=== PATIENT | male | born 1975 | race Two or more races ===

== ENCOUNTER 2019-02-19 11:57 | Inpatient (IN) | payer MEDICAID, OTHER ==
[2019-02-19] VITALS (11 sets, daily range): BP systolic 101–131; BP diastolic 27–66
[~2019-02-19] VITALS: Ht 175.3 cm; Wt 115.0 kg
[2019-02-19] MEDS ORDERED: MIDAZOLAM HCL 5 MG/ML-1ML VIAL ONE (12:01)
[2019-02-19] MEDS ORDERED: MIDAZOLAM DRIP 50 mg/50mL 50 ML IV ONE (12:01)
[2019-02-19] MEDS ORDERED: MIDAZOLAM HCL 5 MG/ML-1ML VIAL IV ONE (12:15)
[2019-02-19] MEDS: MIDAZOLAM DRIP 50 mg/50mL 50 ML IV SCH ×2 (12:30→19:29)
[2019-02-19] MEDS ORDERED: SODIUM CHLORIDE 0.9% 1,000 ML IV ONE ×2 (12:37→22:30)
[2019-02-19] MEDS ORDERED: SODIUM CHLORIDE 0.9% 500 ML IVB ONE (12:37)
[2019-02-19 13:11] LABS: Basophils # (auto) 0.1 uL; Basophils % (auto) 0.4 % (0.0-2.0); Eosinophils # (auto) 0 uL; Eosinophils % (auto) 0.2 % (0.0-7.0); Hematocrit 48.1 % (41.0-53.0); Mean Corpuscular Hemoglobin 31.9 pg (28.0-32.0); Mean Corpuscular Hgb Conc. 33.3 g/dL (32.0-36.0); Mean Corpuscular Volume 95.8 fL (80.0-100.0); Monocytes # (auto) 0.7 uL; Monocytes % (auto) 5.3 % (0.0-12.0); Neutrophils # (auto) 10.7 uL; Neutrophils % (auto) 79.1 % (37.0-80.0); Nucleated Red Blood Cells % 0.1 %; Platelet Count (auto) 262 10^3/uL (140-450); Red Blood Cells 5.02 10^6/uL (4.5-5.90); White Blood Cell 13.6 10^3/uL (4.4-10.8)
[2019-02-19 13:31] LABS: Albumin 3.6 g/dL (3.4-5.0); Calcium 7.8 mg/dL (8.5-10.1); Potassium 3.9 mmol/L (3.5-5.1)
[2019-02-19 13:34] LABS: BUN/Creatinine Ratio 12.5
[2019-02-19 13:37] LABS: Urine Bacteria MOD /hpf (None Seen); Urine Blood TRACE /uL (Negative); Urine Hyaline Cast MANY /lpf (0 - 2); Urine Mucus FEW (None Seen); Urine Specific Gravity 1.022 (1.001-1.035); Urine WBC 3 /hpf (0 - 3)
[2019-02-19 13:44] LABS: Bilirubin, Total 0.2 mg/dL (0.2-1.0); Total Protein 7.5 g/dL (6.4-8.2)
[2019-02-19] MEDS ORDERED: FUROSEMIDE 40 MG/4 ML VIAL IV ONE (13:45)
[2019-02-19] MEDS ORDERED: PANTOPRAZOLE 40 MG/10 ML VIAL INJ IV ONE (13:45)
[2019-02-19] MEDS ORDERED: cefTRIAXone 1GM/50ML D5W 50 ML IV ONE (13:45)
[2019-02-19 13:56] LABS: Barbiturate Scree,Urine NEGATIVE (NEGATIVE); Benzodiazephine Screen, Urine POSITIVE (NEGATIVE); Cannabinoid Screen, Urine NEGATIVE (NEGATIVE); Cocaine Screen, Urine NEGATIVE (NEGATIVE); Opiate Scree,Urine NEGATIVE (NEGATIVE); Phencyclidine Screen, Urine NEGATIVE (NEGATIVE)
[2019-02-19 14:03] LABS: Amphetamine Screen, Urine POSITIVE (NEGATIVE)
[2019-02-19 14:12] LABS: Magnesium 2.7 mg/dL (1.6-2.6)
[2019-02-19] MEDS ORDERED: FOLIC ACID 1 MG, MULTIPLE VITAMIN 10 ML, THIAMINE INJ 100 MG in SODIUM CHLORIDE 0.9% 1,... INJ ONE (16:30)
[2019-02-19] MEDS ORDERED: MORPHINE SULFATE 4 MG/ML SYR/VIAL IV PRN (18:00)
[2019-02-19] MEDS ORDERED: DEXTROSE (50%) 50ML SYRG IV PRN (18:00)
[2019-02-19] MEDS ORDERED: PROMETHAZINE HCL 25 MG/ML 1ML IV PRN (18:00)
[2019-02-19] MEDS ORDERED: NITROGLYCERIN 0.4 MG SL TAB SL PRN (18:00)
[2019-02-19] MEDS ORDERED: ALBUTEROL SULF 2.5 MG/0.5ML(0.5%) NEB SOLN NEB PRN (18:00)
[2019-02-19] MEDS ORDERED: LORazepam 2MG/ML-1ML VIAL IV PRN (18:00)
[2019-02-19] MEDS ORDERED: LABETALOL HCL 5 MG/ML ML 20ML VIAL IV PRN (18:00)
[2019-02-19] MEDS ORDERED: THIAMINE 100mg/ml INJ (200mg/2ml VIAL) IV ONE (18:00)
[2019-02-19] MEDS ORDERED: MORPHINE SULF INJ 2 MG/ML SYRINGE 1ML IV PRN ×2 (18:00)
[2019-02-19] MEDS: ALBUTEROL SULF 2.5 MG/0.5ML(0.5%) NEB SOLN NEB SCH ×2 (18:18→23:58)
[2019-02-19] MEDS: ACCU-CHEK COMFORT CURVE STRIP VI SCH (19:19)
[2019-02-19] MEDS ORDERED: ACETAMINOPHEN 650 mg PER 20 mL UD ONE (20:07)
[2019-02-19] MEDS ORDERED: ACETAMINOPHEN 650 mg PER 20 mL UD PO ONE (20:15)
[2019-02-19] MEDS: fentaNYL Drip 2500mCg/250mlNS 250 ML IV SCH (20:28)
[2019-02-19] MEDS ORDERED: fentaNYL Drip 2500mCg/250mlNS 250 ML IV ONE (20:28)
[2019-02-19] MEDS: PROPOFOL 100 ML IV SCH (20:37)
[2019-02-19] MEDS ORDERED: PROPOFOL 100 ML IV ONE (20:37)
[2019-02-19] MEDS ORDERED: NOREPINEPHRINE 8 MG/250ML KIT 250 ML IV SCH (22:19)
[2019-02-20] VITALS (96 sets, daily range): BP systolic 87–156; BP diastolic 36–104
[2019-02-20] MEDS: ACCU-CHEK COMFORT CURVE STRIP VI SCH ×2 (00:24→06:11)
[2019-02-20] MEDS: MIDAZOLAM DRIP 50 mg/50mL 50 ML IV SCH ×5 (06:20→23:34)
[2019-02-20] MEDS: ALBUTEROL SULF 2.5 MG/0.5ML(0.5%) NEB SOLN NEB SCH ×3 (06:26→18:59)
[2019-02-20] MEDS: PROPOFOL 100 ML IV SCH ×5 (07:32→23:40)
--- NOTE | 2019-02-20 08:20 | NUR ---
DR. SHAIKH AHMADI AWAITING CALLBACK
[2019-02-20 08:40] LABS: Basophils # (auto) 0.1 uL; Basophils % (auto) 0.7 % (0.0-2.0); Eosinophils # (auto) 0.1 uL; Eosinophils % (auto) 0.7 % (0.0-7.0); Hematocrit 43.8 % (41.0-53.0); Lymphocytes # (auto) 1.1 uL; Mean Corpuscular Hemoglobin 32.4 pg (28.0-32.0); Mean Corpuscular Hgb Conc. 34.1 g/dL (32.0-36.0); Mean Corpuscular Volume 94.8 fL (80.0-100.0); Monocytes # (auto) 0.4 uL; Monocytes % (auto) 5.1 % (0.0-12.0); Neutrophils # (auto) 6.8 uL; Neutrophils % (auto) 80.5 % (37.0-80.0); Nucleated Red Blood Cells % 0.1 %; Platelet Count (auto) 185 10^3/uL (140-450); Red Blood Cells 4.62 10^6/uL (4.5-5.90); Red Cell Distribution Width 14.2 % (11.8-14.3); White Blood Cell 8.5 10^3/uL (4.4-10.8)
[2019-02-20 08:56] LABS: BUN/Creatinine Ratio 15.9; Calcium 8.1 mg/dL (8.5-10.1); Potassium 4.1 mmol/L (3.5-5.1)
--- NOTE | 2019-02-20 09:02 | NUR ---
SEDATION VACATION HELD AT THIS TIME Addendum: 02/20/19 at 0902 by Vernon Salter RN Amended: Links added.
[2019-02-20] MEDS: ENOXAPARIN SOD 40 MG/0.4 ML SYRINGE SC SCH (09:36)
[2019-02-20] MEDS ORDERED: THIAMINE 100mg/ml INJ (200mg/2ml VIAL) IV SCH (10:00)
[2019-02-20] MEDS ORDERED: LEVOFLOXACIN 500MG 100 ML IV SCH (10:00)
--- NOTE | 2019-02-20 10:02 | NUR ---
TEMPERATURE 100.2 COOLING MEASURES APPLIED
--- NOTE | 2019-02-20 11:00 | NUR ---
HOSPITALIST PAGED AWAITING CALLBACK
--- NOTE | 2019-02-20 11:58 | NUR ---
WOUND CARE NOTE: Wound care in to see patient due to low Salbador score of 12 and intubation status putting patient to high risk for skin breakdown. Patient is 44 y/o male admitted for ALOC. Patient is resting in ICU bed in Rm. 111. He's intubated, sedated and mechanically ventilated. Patient appears to be in no pain using Nair Mayen Faces Pain Scale. Skin assessment done with the assistance of patient's nurse, CALI Junior. 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 No pressure injury noted. Patient is receiving BID/PRN cleaning and application of Barrier cream to sacral,buttocks, perineum as preventative. Repositioned patient for comfort facing his Lt. side, redistributed pressure points with pillows. Patient tolerated well. CALI Junior at bedside. RECOMMENDATION: Nursing to continue with BID/PRN cleaning and application of Barrier cream to sacral,buttocks per MD order as preventative, frequent turning and repositioning schedule as condition permits,redistribute pressure points with pillows, continue monitoring by wound care while patient is mechanically ventilated. Addendum: 02/20/19 at 1712 by Cesilia Quach RN Amended: Links added.
[2019-02-20] MEDS ORDERED: FOLIC ACID 1 MG, MULTIPLE VITAMIN 10 ML, MAGNESIUM SULF SDV 50% 8 MEQ, THIAMINE INJ 100... INJ SCH ×10 (12:00)
[2019-02-20] MEDS: PIPERACILLIN-TAZOB 3.375GM 100 ML IV SCH ×2 (12:00→17:56)
[2019-02-20] MEDS: fentaNYL Drip 2500mCg/250mlNS 250 ML IV SCH (12:07)
--- NOTE | 2019-02-20 13:16 | NUR ---
DR. PETERSON AT BEDSIDE
[2019-02-20] MEDS ORDERED: SODIUM CHLORIDE 0.9% 1,000 ML IV SCH (14:30)
[2019-02-20] MEDS ORDERED: PIPERACILLIN-TAZOB 3.375GM 100 ML IV ONE (14:30)
[2019-02-20] MEDS ORDERED: PANTOPRAZOLE 40 MG/10 ML VIAL INJ IV ONE (14:30)
[2019-02-20] MEDS ORDERED: FUROSEMIDE INJECTION 10 ML ONE (15:34)
[2019-02-20] MEDS ORDERED: NOREPINEPHRINE 8 MG/250ML KIT 250 ML IV ONE (15:34)
[2019-02-20] MEDS: NOREPINEPHRINE 8 MG/250ML KIT 250 ML IV SCH (15:34)
[2019-02-20] MEDS ORDERED: FUROSEMIDE 100 MG/10ML VIAL IV ONE (15:45)
[2019-02-20 17:08] LABS: Hepatitis B Surface Antigen Negative (Negative); Hepatitis C Antibody Negative (Negative)
[2019-02-20 17:09] LABS: Hepatitis A Ab IgM Negative; Hepatitis B Core IgM Negative
--- NOTE | 2019-02-20 19:00 | NUR ---
RECEIVED REPORT FROM HUGO RN, PT. IN BED ORALLY INTUBATED WITH ETT #8.0, 24 CM AT THE LIP. CONNECTED TO A MECHANICAL VENT @ ORDERED SETTINGS. OGT INTACT AND CLAMPED OFF. RT IJ TLC INTACT, PROPOFOL, VERSED AND FENTANYL DRIP INFUSING WELL, RT HAND IV SITE INTACT, CHAN IN AND DRAINING WELL.
[2019-02-21] VITALS (99 sets, daily range): BP systolic 91–124; BP diastolic 40–75
--- NOTE | 2019-02-21 | NUR ---
ORAL CARE DONE AND REPOSITIONED.
[2019-02-21] MEDS: PIPERACILLIN-TAZOB 3.375GM 100 ML IV SCH ×4 (00:20→18:08)
[2019-02-21] MEDS: ALBUTEROL SULF 2.5 MG/0.5ML(0.5%) NEB SOLN NEB SCH ×4 (00:34→18:24)
[2019-02-21] MEDS: PROPOFOL 100 ML IV SCH ×5 (02:33→13:05)
--- NOTE | 2019-02-21 04:00 | NUR ---
AM CARE DONE/ ORAL CARE DONE, SUCTIONED VIA ETT, REPOSITIONED.
[2019-02-21 04:29] LABS: Basophils # (auto) 0 uL; Basophils % (auto) 0.5 % (0.0-2.0); Eosinophils # (auto) 0.2 uL; Hematocrit 39.6 % (41.0-53.0); Hemoglobin 13.7 g/dL (13.5-17.5); Lymphocytes % (auto) 15.8 % (10.0-50.0); Mean Corpuscular Hemoglobin 32.4 pg (28.0-32.0); Mean Corpuscular Hgb Conc. 34.5 g/dL (32.0-36.0); Mean Corpuscular Volume 93.8 fL (80.0-100.0); Monocytes # (auto) 0.4 uL; Monocytes % (auto) 6.5 % (0.0-12.0); Neutrophils # (auto) 4.9 uL; Neutrophils % (auto) 74.2 % (37.0-80.0); Nucleated Red Blood Cells % 0.1 %; Platelet Count (auto) 174 10^3/uL (140-450); Red Blood Cells 4.22 10^6/uL (4.5-5.90); Red Cell Distribution Width 13.7 % (11.8-14.3); White Blood Cell 6.6 10^3/uL (4.4-10.8)
[2019-02-21 04:33] LABS: Anion Gap 6 (5-15); Blood Urea Nitrogen 12 mg/dL (7-18); Calcium 8.2 mg/dL (8.5-10.1); Carbon Dioxide 27 mmol/L (21-32); Chloride 108 mmol/L (98-107); Glucose 120 mg/dL (74-106); Magnesium 2.2 mg/dL (1.6-2.6); Potassium 3.3 mmol/L (3.5-5.1); Sodium 141 mmol/L (136-145)
[2019-02-21 04:36] LABS: BUN/Creatinine Ratio 12.2; Cholesterol 163 mg/dL (< 200); GFR African American 108 mL/min; GFR Non-African American 89 mL/min; HDL Cholesterol 25 mg/dL (40-59); Triglycerides 425 mg/dL (< 150)
--- NOTE | 2019-02-21 07:00 | NUR ---
REPORT GIVEN TO DAY RN.
--- NOTE | 2019-02-21 08:00 | NUR ---
LEVOPHED GTT Levophed GTT decreased to 2 mcg for a blood pressure of 121/68, will continue to titrate as tolerated by patient.
[2019-02-21] MEDS: MIDAZOLAM DRIP 50 mg/50mL 50 ML IV SCH (08:34)
--- NOTE | 2019-02-21 09:40 | NUR ---
BLOOD PRESSURE Blood pressure has not been taken secondary to RT forgot to placed blood pressure back on to patient from [id number]. Informed RT Joan and aware.
[2019-02-21] MEDS ORDERED: POTASSIUM EFFERVESENT TAB 25 MEQ GT ONE (10:30)
--- NOTE | 2019-02-21 10:30 | NUR ---
MD Dr. Segovia at bedside updated on patient condition and aware of POTASSIUM of 3.3 with new orders received, this RN to input into system.
--- NOTE | 2019-02-21 10:30 | NUR ---
LEVOPHED GTT Levophed GTT turned off for a blood pressure of 113/75, will continue to monitor patients blood pressure for blood pressure support.
[2019-02-21] MEDS: ENOXAPARIN SOD 40 MG/0.4 ML SYRINGE SC SCH (10:31)
[2019-02-21] MEDS: PANTOPRAZOLE 40 MG/10 ML VIAL INJ IV SCH (10:31)
--- NOTE | 2019-02-21 11:30 | NUR ---
FAMILY Patients brother and sister in law at bedside, updated on patient condition and questions/concerns answered.
--- NOTE | 2019-02-21 11:42 | NUR ---
Nutrition Assessment Notes please see attached link for complete assessment Est. Needs based on ABW (99 kg): [address] kcal (17-20 kcal/kgBW), 79-99gms pro (0.8-1.0 gms/kgBW). Will continue to monitor pertinent labs and reassess nutrient need prn Rec: EN support with Glucerna @ 30 ml./hr on current rate of propofol per MD approval Addendum: 02/21/19 at [address] Amended: Links added.
[2019-02-21] MEDS: fentaNYL Drip 2500mCg/250mlNS 250 ML IV SCH (13:05)
[2019-02-21] MEDS: FOLIC ACID 1 MG, MULTIPLE VITAMIN 10 ML, MAGNESIUM SULF SDV 50% 8 MEQ, THIAMINE INJ 100... INJ SCH ×5 (13:06)
--- NOTE | 2019-02-21 13:35 | NUR ---
FAMILY Patients brother and sister in law at bedside and answered brothers questions.
--- NOTE | 2019-02-21 14:15 | NUR ---
TEMPERATURE Patients temperature increased to 99.7 and cooling measures applied to patient.
--- NOTE | 2019-02-21 15:10 | NUR ---
MD Dr. Molina at bedside with new orders received, to input into system.
--- NOTE | 2019-02-21 15:33 | NUR ---
PT UNSTABLE FOR TRANSFER TO CT AT THIS TIME. PER YONATHAN LEIVA Addendum: 02/21/19 at 1701 by YONATHAN YOUNG RN [id number]: Charge nurse Wendy aware of CT of head. Will take once patient is stable for transport.
[2019-02-21] MEDS: NOREPINEPHRINE 8 MG/250ML KIT 250 ML IV SCH (15:34)
--- NOTE | 2019-02-21 16:30 | NUR ---
FAMILY Patients family at bedside.
--- NOTE | 2019-02-21 19:30 | NUR ---
REPORT RECEIVED AND ASSUMED CARE; SEE INTERVENTIONS FOR ASSESSMENT; VS STABLE AT THIS TIME; SEE IV SPREADSHEET FOR GTTS; WILL CONT. TO MONITOR.
--- NOTE | 2019-02-21 20:30 | NUR ---
COUSIN AT BEDSIDE VISITING.
--- NOTE | 2019-02-21 22:20 | NUR ---
NOTICED COUSIN LEFT BEDSIDE.
[2019-02-22] VITALS (78 sets, daily range): BP systolic 92–127; BP diastolic 47–77
[2019-02-22] MEDS: ALBUTEROL SULF 2.5 MG/0.5ML(0.5%) NEB SOLN NEB SCH ×4 (00:21→18:15)
[2019-02-22] MEDS: PIPERACILLIN-TAZOB 3.375GM 100 ML IV SCH ×4 (00:57→18:00)
[2019-02-22 04:25] LABS: BUN/Creatinine Ratio 10.5; Calcium 8.3 mg/dL (8.5-10.1); Potassium 3.4 mmol/L (3.5-5.1)
--- NOTE | 2019-02-22 04:48 | NUR ---
PROVIDED BED BATH WITH CHG WIPES AND LINEN CHANGE; PT. TOLERATED WELL; WILL CONT. TO MONITOR.
--- NOTE | 2019-02-22 09:51 | NUR ---
FAMILY AT BEDSIDE PATIENT'S SPOUSE AND FATHER AT BEDSIDE, UPDATED ON PATIENT'S STATUS IN [facility], ALL VERBALIZED UNDERSTANDING. WILL CONTINUE TO MONITOR.
[2019-02-22] MEDS ORDERED: POTASSIUM EFFERVESENT TAB 25 MEQ PO ONE (10:45)
--- NOTE | 2019-02-22 10:50 | NUR ---
HOSPITALIST AT BEDSIDE DR PETERSON UPDATED ON PATIENT'S STATUS AND LABS. DR PETERSON DISCUSSED PLAN OF CARE WITH PATIENT'S SPOUSE AND PATIENT'S FATHER AT BEDSIDE, ALL QUESTIONS AND CONCERNS ANSWERED. WILL CONTINUE TO MONITOR.
[2019-02-22] MEDS: PANTOPRAZOLE 40 MG/10 ML VIAL INJ IV SCH (10:52)
[2019-02-22] MEDS: THIAMINE 100mg/ml INJ (200mg/2ml VIAL) IV SCH (10:53)
[2019-02-22] MEDS: ENOXAPARIN SOD 40 MG/0.4 ML SYRINGE SC SCH (10:53)
--- NOTE | 2019-02-22 11:20 | NUR ---
INTEGRATIVE MEDICINE PHYSICIAN AT BEDSIDE NOTIFIED OF ORDERED GLUCERNA AND PATIENT NOT DIABETIC - HISTORY OF NO DIABETES CONFIRMED WITH DR PETERSON. PER DR PETERSON FAMILY STATED BORDERLINE DIABETES BUT DOES NOT HAVE A HISTORY OF DIABETES. DIET WILL BE CHANGED TO JEVITY WITH A GOAL RATE OF 30/MLS/HR.
[2019-02-22] MEDS: MIDAZOLAM DRIP 50 mg/50mL 50 ML IV SCH (12:16)
[2019-02-22] MEDS: PROPOFOL 100 ML IV SCH (12:25)
--- NOTE | 2019-02-22 12:40 | NUR ---
Nutrition Assessment Notes Pt wt is 127 kg today Est. Needs based on ABW (99 kg): [address] kcal (17-20 kcal/kgBW), 79-99gms pro (0.8-1.0 gms/kgBW). Will continue to monitor pertinent labs and reassess nutrient need prn LABS: TRIGLYC 425 H, HDL 25 L, CA 8.3 L, POT 3.4 L, A1c WNL BS: 12 high risk, intact BM: last BM 02/21 per RN doc PES: 1) Altered nutrition related lab values r.t current chronic medical condition aeb hyperglycemia, hypocalcemia, elev TG 2) Decreased nutrient needs r.t adiposity aeb pt`s high BMI 41.1 kgm2 3) Impaired swallowing r.t current medical conidtion aeb pt`s intubated sedtaed with order of NPO Rec: EN support with Jevity 1.2 @ 30 ml./hr on current rate of propofol per MD approval (Note recommendation amended d/t pt A1c is WNL)
[2019-02-22] MEDS: FOLIC ACID 1 MG, MULTIPLE VITAMIN 10 ML, MAGNESIUM SULF SDV 50% 8 MEQ, THIAMINE INJ 100... INJ SCH ×5 (12:46)
[2019-02-22] MEDS: BUMETANIDE 2.5mg/10ml (0.25 mg/ml) INJ IV SCH (14:59)
[2019-02-22] MEDS: NOREPINEPHRINE 8 MG/250ML KIT 250 ML IV SCH (15:34)
--- NOTE | 2019-02-22 17:00 | NUR ---
DR FOX AT BEDSIDE UPDATED ON PT STATUS AND CURRENT SEDATION STATUS WITH PRIMARY NURSE. NEW ORDERS RECEIVED AND IMPLEMENTED. DISCUSSED POC WITH PTS BROTHER DONALD AT BEDSIDE, DONALD VERBALIZED UNDERSTANDING. Signed: 02/22/19 at 1842 by LAURA QUEVEDO SN <Co-Signature Required> Co-Signed: 02/22/19 at 1842 by Ashlee Sosa RN
--- NOTE | 2019-02-22 17:30 | NUR ---
CT MACHINE DOWN UNABLE TO TAKE PT TO CT AT THIS TIME. PER RADIOLOGY DEPARTMENT, CT MACHINE DOWN AT THIS TIME AND SHOULD BE WORKING LATER TONIGHT. Signed: 02/22/19 at 1846 by LAURA QUEVEDO <Co-Signature Required> Co-Signed: 02/22/19 at 1846 by Ashlee Sosa RN
--- NOTE | 2019-02-22 18:15 | NUR ---
Respiratory note: RECEIVED PT ON VENT V19, VENT CONNECTED TO RED OUTLET AND O2 SOURCE, ALARMS ARE SET AND AUDIBLE AMBU BAG AND MASK AT BEDSIDE. BS ARE FINE COURSE, SXD SCANT CLEAR. FAMILY AT BEDSIDE. MED NEB TX GIVEN INLINE WITHOUT ADVERSE REACTION NOTED. RT NAME AND PAGER ASSIGNMENT WRITTEN ON PTS ROOM BOARD. WILL CONTINUE TO MONITOR.
--- NOTE | 2019-02-22 20:07 | NUR ---
Respiratory note: RECEIVED PT ON VENT V19, VENT CONNECTED TO RED OUTLET AND O2 SOURCE, ALARMS ARE SET AND AUDIBLE AMBU BAG AND MASK AT BEDSIDE. BS ARE FINE COURSE, SXD SCANT CLEAR. FAMILY AT BEDSIDE. MED NEB TX GIVEN INLINE WITHOUT ADVERSE REACTION NOTED. RT NAME AND PAGER ASSIGNMENT WRITTEN ON PTS ROOM BOARD. WILL CONTINUE TO MONITOR. Addendum: 02/22/19 at 2040 by Elke Stack, RT ROUTINE VENT CHECK DONE AT THIS TIME, NO VENT CHANGES MADE AT THIS TIME.
--- NOTE | 2019-02-22 21:00 | NUR ---
TITRATING SEDATION TO PT. COMFORT AT MINIMAL SEDATION; VERSED GTT OFF SINCE AM SHIFT PER REPORT; CONT. WITH FENTANYL GTT AND PROPOFOL GTT; WILL CONT. TO MONITOR.
--- NOTE | 2019-02-22 21:28 | NUR ---
Patient has returned from radiology. Patient returned to bed and is now on 2 l/min NC with suction available at bedside. Addendum: 02/26/19 at 0244 by ALBINA SMITH RN Wrong time. Disregard.
--- NOTE | 2019-02-22 22:06 | NUR ---
Respiratory note: ROUTINE VENT CHECK. NO VENT CHANGES MADE AT THIS TIME.
[2019-02-23] VITALS (82 sets, daily range): BP systolic 90–177; BP diastolic 45–98
[2019-02-23] MEDS: ALBUTEROL SULF 2.5 MG/0.5ML(0.5%) NEB SOLN NEB SCH ×5 (00:16→23:53)
--- NOTE | 2019-02-23 00:16 | NUR ---
Respiratory note: ROUTINE VENT CHECK. NO VENT CHANGES MADE AT THIS TIME. MED NEB TX GIVEN INLINE WITHOUT ADVERSE REACTION NOTED. BS ARE COURSE SXD SCANT GILL.
--- NOTE | 2019-02-23 02:06 | NUR ---
Respiratory note: AT BEDSIDE FOR ROUTINE VENT CHECK. HME AND SX CATHETER CHANGED AT THIS TIME. CURRENT TEMP IS 99.3F. NO VENT CHANGES MADE AT THIS TIME. WILL CONTINUE TO MONITOR.
--- NOTE | 2019-02-23 04:20 | NUR ---
Respiratory note: END OF SHIFT VENT CHECK. NO VENT CHANGES MADE. CURRENT TEMP IS 99.3F. WILL HAVE DAY SHIFT CONTINUE TO MONITOR.
[2019-02-23 05:35] LABS: BUN/Creatinine Ratio 11.6; Calcium 8.4 mg/dL (8.5-10.1); Potassium 3.8 mmol/L (3.5-5.1)
[2019-02-23] MEDS: PIPERACILLIN-TAZOB 3.375GM 100 ML IV SCH ×4 (06:00→17:42)
--- NOTE | 2019-02-23 07:04 | NUR ---
Respiratory note: RECEIVED PATIENT ON V19 ESPRIT VENT ORALLY INTUBATED WITH AN 8.0 ETT SECURED VIA ROSARIO AT THE 23CM MARKING AT THE LIP, AND MECHANICALLY VENTILATED WITH THE CHARTED SETTINGS. SPO2 95%, LUNG SOUNDS DIM T/O, NO SECRETIONS WHEN SUCTIONED. SKIN IS WARM/DRY TO THE TOUCH AND IS INTACT NEAR ROSARIO SITE. THERE IS AN OGT IN PLACE AND SECURED TO THE ETT, AND A TRIPLE LUMEN CENTRAL LINE IS PLACED IN THE RIGHT IJ. NO EDEMA NOTED IN UPPER EXTREMITIES. LOWER EXTREMITIES ARE PRESENTING WITH +1 PITTING EDEMA. NO NEW AM CXR TO ASSESS AT THIS TIME. PATIENT IS UNRESPONSIVE TO BOTH VERBAL/TACTILE STIMULI AND IS SEDATED ON PROPOFOL AND FENTANYL DRIPS. HE IS RESTING COMFORTABLY AND TOLERATING VENT WELL, NO CHANGES MADE. VENT PLUGGED INTO RED OUTLET AND ALL ALARMS ARE SET AND AUDIBLE. WILL CONTINUE TO ASSESS PATIENT WELL VENTILATOR FUNCTION. MED-NEB RUN INLINE, ABG DRAWN.
--- NOTE | 2019-02-23 07:40 | NUR ---
OPENING SHIFT NOTE REPORT RECEIVED FROM BATCHING OPERATOR RN, MORNING ASSESSMENT PERFORMED AND DOCUMENTED. 44 YEAR OLD MALE, MECHANICALLY VENTILATED AND SEDATED. HOB ELEVATED GREATER THAN 30 DEGREES, ETT SECURED WITH ROSARIO, POSITIVE COUGH AND GAG REFLEX NOTED, OGT PLACEMENT VERIFIED VIA AUSCULTATION WITH AIR BOLUS AND ASSISTED BY FLOR Shabazz STUDENT PEARL GLUE DRIER RN. PERIPHERAL IV'S PATENT AND SALINE LOCKED, RIGHT IJ PATENT AND INFUSING ANTIBIOTICS ORDERED BY MD - SEDATION STOPPED FOR SEDATION VACATION AND MONITORING NEUROLOGICAL STATUS. ABDOMEN SOFT, CHAN CATHETER PATENT AND DRAINING TO GRAVITY YELLOW/GREENISH URINE WITH SEDIMENT. MITTENS PLACED FOR PATIENT SAFETY DURING SEDATION VACATION. COMFORT MEASURES PROVIDED, FALL AND SAFETY PRECAUTIONS IN PLACE. CLOSE MONITORING DURING SHIFT.
--- NOTE | 2019-02-23 08:30 | NUR ---
FAMILY AT BEDSIDE PATIENT OFF SEDATION, WAKING UP - NO FOLLOWING COMMANDS AT THIS TIME, FALL AND SAFETY PRECAUTIONS IN PLACE. WILL CONTINUE TO MONITOR DURING SHIFT.
--- NOTE | 2019-02-23 10:30 | NUR ---
RESTART SEDATION PATIENT PLACED ON SEDATION VACATION AT START OF SHIFT, AT THIS TIME PATIENT SLIGHTLY OPENS EYES AND MOVING UPPER AND LOWER EXTREMITIES WITHOUT PURPOSE. PATIENT NOT FOLLOWING COMMANDS, INCREASED HR, RESPIRATIONS, DECREASED OXYGEN SATURATION TO 85%, INCREASED ORAL AND ETT SECRETIONS. PATIENT'S GIRL FRIEND LEANN AT BEDSIDE, ATTEMPTING TO KEEP PATIENT CALM WITH NO SUCCESS. PATIENT WILL BE RE-SEDATED AND MD'S WILL BE NOTIFIED.
[2019-02-23] MEDS: PANTOPRAZOLE 40 MG/10 ML VIAL INJ IV SCH (10:52)
[2019-02-23] MEDS: ENOXAPARIN SOD 40 MG/0.4 ML SYRINGE SC SCH (10:52)
[2019-02-23] MEDS: BUMETANIDE 2.5mg/10ml (0.25 mg/ml) INJ IV SCH (10:52)
[2019-02-23] MEDS: THIAMINE 100mg/ml INJ (200mg/2ml VIAL) IV SCH (10:52)
--- NOTE | 2019-02-23 12:00 | NUR ---
PATIENT OFF/RETURN TO FLOOR FROM RADIOLOGY FOR ORDERED HEAD CT VIA GURNEY, CONNECTED TO PORTABLE MONITOR AND VENTILATOR. PATIENT ACCOMPANIED BY THIS NURSE, Nina WILLIAMSON, PERINATAL EDUCATOR AND FLOR DREDGE OPERATOR STUDENT RN. 1220: PATIENT RETURNED TO FLOOR, CONNECTED TO BEDSIDE MONITOR - SEDATION INCREASED DUE TO INCREASED AGITATION AND SAFETY PURPOSE WHILE TRANSPORT AND HEAD CT.
--- NOTE | 2019-02-23 12:05 | NUR ---
RT Transport Note: Patient transported to CT with CALI LAYNE. Patient transported to and from procedure on ventilator with previous ordered settings. Patient on telehealth nurse educator with alarms set and audible, ambu-bag/mask connected to 02 tank. Patient returned to room with no adverse reaction noted. Transport completed without incident.
[2019-02-23] MEDS: MIDAZOLAM DRIP 50 mg/50mL 50 ML IV SCH (12:16)
--- NOTE | 2019-02-23 13:00 | NUR ---
COMFORT/CHAN BAG CHANGED DURING TRANSFER TO RADIOLOGY, CHAN CATHETER GOT CAUGHT BETWEEN DOOR AND BED CAUSING URINE TO LEAK APPROXIMATELY 900 MLS OF YELLOW/GREENISH URINE IN BED. CHAN CATHETER BAG CHANGED VIA STERILE TECHNIQUE BY FLOR ALGOLOGY TEACHER STUDENT RN, ASSISTED BY THIS NURSE. COMPLETE BEDDING CHANGED AND GOWN AFTER SKIN CARE PROVIDED TO MAINTAIN SKIN INTEGRITY, PATIENT CONTINUES TO BE RESTLESS AT THIS TIME. PATIENT REPOSITIONED FOR COMFORT - FALL AND SAFETY PRECAUTIONS IN PLACE. WILL CONTINUE TO MONITOR.
[2019-02-23] MEDS: PROPOFOL 100 ML IV SCH ×2 (13:36→19:00)
--- NOTE | 2019-02-23 14:05 | NUR ---
DR FOX AT BEDSIDE UPDATED ON PATIENT'S STATUS AND SEDATION VACATION AGITATION AND RESTLESSNESS. DR FOX VERBALIZED UNDERSTANDING. DR FOX DISCUSSED PLAN OF CARE WITH PATIENT'S BROTHER DONALD AT BEDSIDE. ORDERS FOR PRECEDEX RECEIVED FOR CPAP ATTEMPT TOMORROW MORNING AND TO START ENTERAL FEEDING.
[2019-02-23] MEDS: NOREPINEPHRINE 8 MG/250ML KIT 250 ML IV SCH (15:34)
[2019-02-23] MEDS ORDERED: Jevity 1.2 Cal/Fiber 1 Liter GT SCH (16:30)
--- NOTE | 2019-02-23 16:45 | NUR ---
FEEDING STARTED/CENTRAL LINE DRESSING CHANGED 1644: FEEDING STARTED PER DR FOX'S ORDER AT A SLOW RATE. 1699: CENTRAL LINE TO RIGHT IJ DRESSING CHANGED VIA STERILE TECHNIQUE, ASSISTED BY CALI LAYNE. NOTED INTACT BLISTER ON ANTERIOR RIGHT NECK UNDERNEATH OLD DRESSING. WOUND CARE PICTURES TAKEN, AREA CLEANSED FOR STERILITY AND COVERED WITH GAUZE AND CENTRAL LINE DRESSING ON TOP. WOUND CARE CONSULT WILL BE ORDERED Signed: 02/23/19 at 1723 by LAURA QUEVEDO <Co-Signature Required> Co-Signed: 02/23/19 at 1723 by Ashlee Sosa RN
[2019-02-23] MEDS: DexMEDEtomidine 400 MCG in D5W 5% 96 ML IV SCH (17:52)
--- NOTE | 2019-02-23 18:20 | NUR ---
FAMILY AT BEDSIDE/INCREASE SEDATION PATIENT'S GIRLFRIEND AND BROTHER DONALD AT BEDSIDE, PATIENT NOTED TO BE AGITATED MOVING UPPER AND LOWER EXTREMITIES WHEN FAMILY PRESENT. FAMILY NOTIFIED OF NEED TO INCREASE SEDATION, FAMILY VERBALIZED UNDERSTANDING.
--- NOTE | 2019-02-23 19:01 | NUR ---
END OF SHIFT NOTE PATIENT MECHANICALLY VENTILATED, SEDATED - RELAXED AND CALM AT THIS TIME BUT RESTLESS WHEN TOUCHED OR PERFORMING ADL'S, NO DISTRESS NOTED, RESPIRATIONS EVEN AND UNLABORED, VSS AND DOCYMENTED. FAMILY LEFT BEDSIDE FOR SHIFT CHANGE. ICE PACKS AND COOL TOWEL ON FOREHEAD IN PLACE FOR COOLING MEASURES. FALL AND SAFETY PRECAUTIONS IN PLACE, ENDORSED CONTINUED CARE TO TRAVEL OCCUPATIONAL THERAPIST RN.
--- NOTE | 2019-02-23 19:25 | NUR ---
OPENING SHIFT RECEIVED REPORT FROM DAY SHIFT RN. ASSUMED CARE OF PATIENT. PATIENT IN BED VENTED AND SEDATED WITH NO SIGNS OR SYMPTOMS OF SOB, PAIN OR DISTRESS. ET 8.0 24 AT THE LIP - AC 24/TV500/PEEP 7/ FI02 30%. RIGHT INTRAJUGULAR, LEFT ANTECUBITAL AND RIGHT HAND IV - CLEAN/DRY/INTACT. OGT VERIFIED VIA AUSCULTATION WITH 10 CC OF AIR, CURRENTLY ON 10CC JEVITY - MINIMAL RESIDUAL, PATIENT TOLERATING. CHAN HUNG TO GRAVITY. REPOSITIONED FOR COMFORT. BED IN LOWEST POSITION, SIDE RAILS UPX2. WILL CONTINUE TO MONITOR.
[2019-02-24] VITALS (89 sets, daily range): BP systolic 90–176; BP diastolic 39–113
[2019-02-24] MEDS: PIPERACILLIN-TAZOB 3.375GM 100 ML IV SCH ×5 (00:30→23:41)
--- NOTE | 2019-02-24 00:45 | NUR ---
MORNING CARE PERFORMED MORNING CARE WITH CHG WIPES AND WASH CLOTHS TO THE FACE. PARTIAL LINEN CHANGE AND GOWN CHANGED. REPOSITIONED FOR COMFORT. SKIN REASSESSED AT THIS TIME. ORAL AND CHAN CARE PERFORMED. BED IN LOWEST POSITION, SIDE RAILS UP X2. WILL CONTINUE TO MONITOR.
[2019-02-24 03:58] LABS: Calcium 8.5 mg/dL (8.5-10.1); Potassium 3.6 mmol/L (3.5-5.1)
[2019-02-24 04:00] LABS: BUN/Creatinine Ratio 16.7
[2019-02-24] MEDS: fentaNYL Drip 2500mCg/250mlNS 250 ML IV SCH ×2 (04:00→04:51)
[2019-02-24] MEDS: ALBUTEROL SULF 2.5 MG/0.5ML(0.5%) NEB SOLN NEB SCH ×3 (05:43→19:14)
--- NOTE | 2019-02-24 07:20 | NUR ---
OPENING NOTE SHIFT REPORT RECEIVED AND ASSUMED CARE OF PT FROM LEONID RN
--- NOTE | 2019-02-24 07:20 | NUR ---
CLOSING NOTE SHIFT REPORT RRECEIVED AND ASSUMED CARE OF PT FROM BILLYPRINCE RN
--- NOTE | 2019-02-24 07:30 | NUR ---
END OF SHIFT REPORT GIVEN TO DAY SHIFT RN. CARE ENDORSED.
--- NOTE | 2019-02-24 09:00 | NUR ---
PT IS AWAKE, NOT ALERT, BUT MOVING EXTREMITIES. MITTENS APPLIED.
[2019-02-24] MEDS: PROPOFOL 100 ML IV SCH (09:35)
[2019-02-24] MEDS: DexMEDEtomidine 400 MCG in D5W 5% 96 ML IV SCH ×2 (09:36→23:42)
[2019-02-24] MEDS: BUMETANIDE 2.5mg/10ml (0.25 mg/ml) INJ IV SCH (09:56)
[2019-02-24] MEDS: PANTOPRAZOLE 40 MG/10 ML VIAL INJ IV SCH (09:57)
[2019-02-24] MEDS: ENOXAPARIN SOD 40 MG/0.4 ML SYRINGE SC SCH (09:57)
[2019-02-24] MEDS: THIAMINE 100mg/ml INJ (200mg/2ml VIAL) IV SCH (10:01)
--- NOTE | 2019-02-24 11:00 | NUR ---
DR. PETERSON AT BEDSIDE ORDERS RECEIVED
[2019-02-24] MEDS: NOREPINEPHRINE 8 MG/250ML KIT 250 ML IV SCH (15:34)
[2019-02-24] MEDS ORDERED: ONDANSETRON HCL 4 MG/2 ML VIAL IV PRN (16:00)
[2019-02-24] MEDS ORDERED: ONDANSETRON HCL 4 MG/2 ML VIAL ONE (16:10)
--- NOTE | 2019-02-24 16:30 | NUR ---
DR. LUBIN AT BEDSIDE ORDERS RECEIVED
--- NOTE | 2019-02-24 17:40 | NUR ---
PT EXTUBATED. TOLERATING WELL. WILL CONTINUE TO MONITOR
--- NOTE | 2019-02-24 17:40 | NUR ---
Respiratory note: PT EXTUBATED AT THIS TIME PER DR. LUBINR SENIOR FUNCTIONAL ANALYST. PT TOLERATING BEING OFF VENTILATOR AND IS CURRENTLY ON COOL AEROSOL @ 30%, 8LPM. NO STRIDOR NOTED. SPO2 95%, HR 100, RR 16. BS CLR/DIM. MILD SECRETIONS NOTED. PT IS FULLY AWAKE AND ALERT. WILL CONTINUE TO MONITOR PT T/O SHIFT.
--- NOTE | 2019-02-24 19:20 | NUR ---
SHIFT REPORT GIVEN AND CARE ENDORSED TO ABDIEL LEIVA
--- NOTE | 2019-02-24 19:44 | NUR ---
Respiratory note: PT SWITCHED FROM COOL AEROSOL TO NC3L AND TOLERATING WELL. SPO2 97%, HR 99, RR 19. WILL CONTINUE TO MONITOR PT T/O SHIFT.
--- NOTE | 2019-02-24 20:00 | NUR ---
OPEN NOTES PATIENT AWAKE AND ORIENTED. HE SAID HE HAD TOO MUCH TO DRINK THAT'S WHY HE IS IN THE HOSPITAL. ABLE TO MOVE ALL LIMBS, ABLE TO TURN TO HIS SIDES. NO COMPLAINS OF PAIN, NOT IN DISTRESS. EXTUBATED TODAY,ON NASAL CANNULA NOW AT 3L/MIN. USES SUCTION FOR ORAL SECRETIONS. FULL ASSESSMENT DONE -REFER INTERVENTIONS. CENTRAL LINE DRESSING PEELING OFF, CHANGED ASEPTICALLY.
--- NOTE | 2019-02-24 20:10 | NUR ---
ELIMINATION PATIENT HAD SOFT TO LOOSE BROWNISH STOOL MODERATE AMOUNT CLEANED, PARTIAL LINEN CHANGED DONE
[2019-02-25] VITALS (14 sets, daily range): BP systolic 130–169; BP diastolic 79–99
[2019-02-25] MEDS: ALBUTEROL SULF 2.5 MG/0.5ML(0.5%) NEB SOLN NEB SCH ×4 (00:39→18:50)
--- NOTE | 2019-02-25 01:44 | NUR ---
BP HIGH PATIENT'S BP RANGING 160-170/ 90-100 [facility] PAGED HOSPITALIST
--- NOTE | 2019-02-25 03:00 | NUR ---
Re-asses BP Patient's BP now 150-155 mmHg systolic. Hospitalist hasn't called back. will monitor
[2019-02-25 04:06] LABS: Hematocrit 43.3 % (41.0-53.0); Hemoglobin 14.7 g/dL (13.5-17.5); Mean Corpuscular Hemoglobin 31.4 pg (28.0-32.0); Mean Corpuscular Hgb Conc. 33.9 g/dL (32.0-36.0); Mean Corpuscular Volume 92.7 fL (80.0-100.0); Platelet Count (auto) 289 10^3/uL (140-450); Red Blood Cells 4.67 10^6/uL (4.5-5.90); Red Cell Distribution Width 13.2 % (11.8-14.3); White Blood Cell 6.7 10^3/uL (4.4-10.8)
[2019-02-25 04:14] LABS: Basophils % (manual) 0 (0.0-2.0); Blast Cells 0; Eosinophils % (manual) 0 (0-7); Metamyelocytes % 0; Promyelocytes % 0; Reactive Lymphocytes 0
[2019-02-25 04:23] LABS: Magnesium 2.2 mg/dL (1.6-2.6)
--- NOTE | 2019-02-25 04:30 | NUR ---
ELIMINATION/HYGIENE PATIENT HAD SOFT TO LOOSE BROWNISH STOOL MODERATE AMOUNT CLEANED, SPONGE BATH DONE.PARTIAL LINEN CHANGED DONE
[2019-02-25 04:39] LABS: Band Neutrophils % (manual) 1; Lymphocytes % (manual) 17 (10.0-50.0); Monocytes % (manual) 5 (0-12); Myelocytes % 2
--- NOTE | 2019-02-25 05:00 | NUR ---
ICE CHIPS PATIENT GIVEN ICE CHIPS. TOLERATED WELL
[2019-02-25] MEDS: PIPERACILLIN-TAZOB 3.375GM 100 ML IV SCH (05:50)
[2019-02-25] MEDS: PANTOPRAZOLE 40 MG/10 ML VIAL INJ IV SCH ×2 (10:13→21:18)
[2019-02-25] MEDS: BUMETANIDE 2.5mg/10ml (0.25 mg/ml) INJ IV SCH (10:19)
[2019-02-25] MEDS: ENOXAPARIN SOD 40 MG/0.4 ML SYRINGE SC SCH (10:19)
[2019-02-25] MEDS: LEVOFLOXACIN 750MG 150 ML IV SCH (10:19)
[2019-02-25] MEDS: THIAMINE 100mg/ml INJ (200mg/2ml VIAL) IV SCH (10:20)
--- NOTE | 2019-02-25 11:32 | NUR ---
Nutrition Follow-up Notes Wt.: 115.0 kg today Pt's successfully extubated yesterday, on oxygen via nasal cannula, asleep, no immediate family member at bedside during rounds this morning. Pt's no signs of distress noted earlier, currently on Clear Liquid diet with good PO intake aeb 100% consumed meal on today's breakfast. Noted pt's for active Wound consult. Est. Needs based on AdBW (99 kg): 9927-5365 kcal (17-20 kcal/kgAdBW), 79-99gms pro (0.8-1.0 gms/kgAdBW). Will continue to monitor pertinent labs and reassess nutrient need prn Labs: No new labs today 02/24/18 pertinent lab wnl except Cl 110 H Skin: Salbador scale 17, mod risk, skin intact per computer drafter. GI: Pt had 2x BM this morning per computer drafter. PES: Increased nutrient needs r/t acute/chronic medical condition aeb s/p extubation, on Clear Liquid diet. Altered nutrition related lab values r/t current/chronic medical condition aeb hyperchloremia. Obesity r/t food intake more than body requirement aeb 158% IBW, BMI 37.4 kg/m2 and increased body adiposity Will continue to monitor PO intake, skin status, pertinent labs and weight trend. F/u in 2 to 3 days. Rec.: 1.) Advance gradually oral diet when medically appropriate. 2.) Continue close supervision during meals. 3.) Refer pt to RD for further nutrition education and weight monitoring upon discharge. 4.) Continue current plan of care.
[2019-02-25] MEDS ORDERED: hydrALAZINE HCL 20 MG/ML VL IV PRN (15:30)
--- NOTE | 2019-02-25 15:30 | NUR ---
DR. PETERSON IN TO SEE PT UPDATED ON PT'S CONDITION 4 LOOSE STOOL WITH SOME STREAKS OF BLOOD, PT ALSO HAVING SOME BLOOD IN CHAN, I HAVE BEEN DOING BLADDER TRAINING AND PT REQUIRES PT DUE TO DIFFICULTY TRANSFERRING FROM BED TO CHAIR. NEW ORDERS RECEIVED FOR INCREASED PROTONIX CT SCAN OF ABDOMEN AND GI CONSULTATION WITH DR. MARIE.
[2019-02-25] MEDS ORDERED: LORazepam 0.5 MG TAB PO PRN (15:45)
--- NOTE | 2019-02-25 16:44 | NUR ---
Telemetry admit from ICU JOI VILLATORO admitted to Telemetry unit after SBAR received. Patient oriented to Yadira Cameron RN primary RN, unit, room, bed, and unit policies regarding patient care and visiting hours. Patient now on continuous telemetry monitoring, tele box #14. Patient's bed is in set in lowest locked position with call light within reach. All questions and concerns addressed, patient verbalized understanding. Will continue to monitor.
[2019-02-25] MEDS: IPRATROPIUM BROM 0.5 MG/2.5ML INH SOL NEB SCH (18:50)
--- NOTE | 2019-02-25 19:28 | NUR ---
Opening Shift Note Assumed care of patient, awake and alert x 4. No S/S of distress/SOB. Bed is in lowest position and locked. Call light within reach. Board updated. Tele box number matches monitor and leads are in correct placement. Instructed on POC and to call for assist PRN, will continue to monitor for changes Q1hr and PRN.
--- NOTE | 2019-02-25 21:18 | NUR ---
Patient taken down to radiology accompanied by RN. Patient attached to 2 l/min NC. Taken in wheelchair.
--- NOTE | 2019-02-25 21:28 | NUR ---
Patient has returned from radiology. Patient returned to bed and is now on 2 l/min NC with suction available at bedside.
[2019-02-26] MEDS: ALBUTEROL SULF 2.5 MG/0.5ML(0.5%) NEB SOLN NEB SCH ×3 (00:26→11:00)
[2019-02-26] MEDS: IPRATROPIUM BROM 0.5 MG/2.5ML INH SOL NEB SCH ×3 (00:26→11:01)
[2019-02-26 05:04] VITALS: BP 143/86
[2019-02-26 06:44] LABS: Potassium 3.9 mmol/L (3.5-5.1)
[2019-02-26 06:49] LABS: BUN/Creatinine Ratio 18.1; Calcium 9.6 mg/dL (8.5-10.1)
[2019-02-26 09:00] VITALS: BP 148/103
[2019-02-26 09:45] VITALS: BP 146/91
[2019-02-26] MEDS ORDERED: LISINOPRIL 20 MG TAB PO ONE (10:00)
[2019-02-26] MEDS ORDERED: LISINOPRIL 20 MG TAB PO SCH (10:00)
[2019-02-26] MEDS: ENOXAPARIN SOD 40 MG/0.4 ML SYRINGE SC SCH (10:01)
[2019-02-26] MEDS: PANTOPRAZOLE 40 MG/10 ML VIAL INJ IV SCH (10:01)
[2019-02-26] MEDS: THIAMINE 100mg/ml INJ (200mg/2ml VIAL) IV SCH (10:01)
[2019-02-26] MEDS ORDERED: LISI-646 PO (11:21)
[2019-02-26] MEDS ORDERED: LEVO750T2 PO (11:21)
[2019-02-26] MEDS ORDERED: PANT40TA2 PO (11:21)
[2019-02-26] MEDS: LEVOFLOXACIN 750MG 150 ML IV SCH (11:28)
[2019-02-26 12:38] VITALS: BP 135/91
[2019-02-26 13:12] VITALS: BP 148/103
--- NOTE | 2019-02-26 14:25 | NUR ---
Discharge instructions given as ordered. Encourage to follow up with PMD as instructed. All questions and concerns addressed. Patient verbalized understanding. Medication reconciliation form completed and copy given to patient. . IV removed with catheter intact, pressure dressing applied, . Telemetry unit returned to ICU. Patient taken to vehicle via wheelchair with all personal belongings, accompanied by staff and family member. No distress noted at time of departure.
--- NOTE | 2019-02-26 16:30 | NUR ---
assessment Patient is a 44 year old male who is alert and oriented. Patients cognitive abilities are intact. Prior to admission patient lived home with family and functioned independently. Patient informed me he is able to care for his own ADLs. Per patient he will return home to his prior living arrangements post discharge and family will transport him home. Patient has no post discharge needs at this time. I informed patient he has a right to speak to a social media editor regarding all care. I informed patient he has a right to participate in any and all discharge planning. Patient does not have a POA and advanced directive. I have offered patient information on POA and advanced directives. I informed the patient the advantages and benefits of having an Advanced Directive. Patient verbalized understanding and agreed to discharge plan. Addendum: 02/26/19 at 1631 by Monica BOWSER Amended: Links added.
== END 2019-02-26 14:25 | disposition home health service (06) | DRG 720 ==
LOC: ER 11:57 → EDBD 11:57 → TELE 11:58 → ICU WEST 23:00 → TELE-EAST 02-25 16:44
PROVIDERS: ADMIT Internal Medicine; ATTEND Internal Medicine
PROC: 5A1955Z Respiratory Ventilation, Greater than 96 Consecutive Hours (ICD-10-PCS; principal; 2019-02-20)
PROC: 02HV33Z Insertion of Infusion Device into Superior Vena Cava, Percutaneous Approach (ICD-10-PCS; 2019-02-20)
PROC: B548ZZA Ultrasonography of Superior Vena Cava, Guidance (ICD-10-PCS; 2019-02-20)
PROC: 0BH17EZ Insertion of Endotracheal Airway into Trachea, Via Natural or Artificial Opening (ICD-10-PCS; 2019-02-20)
DX: A41.01 Sepsis due to Methicillin susceptible Staphylococcus aureus (principal); J96.01 Acute respiratory failure with hypoxia; J69.0 Pneumonitis due to inhalation of food and vomit; I50.33 Acute on chronic diastolic (congestive) heart failure; G92 Toxic encephalopathy; F10.129 Alcohol abuse with intoxication, unspecified; R40.1 Stupor; J32.0 Chronic maxillary sinusitis; G47.30 Sleep apnea, unspecified; E66.01 Morbid (severe) obesity due to excess calories; F17.200 Nicotine dependence, unspecified, uncomplicated; F14.10 Cocaine abuse, uncomplicated; F12.10 Cannabis abuse, uncomplicated; E78.5 Hyperlipidemia, unspecified; N30.90 Cystitis, unspecified without hematuria; F15.10 Other stimulant abuse, uncomplicated; Y90.9 Presence of alcohol in blood, level not specified; I11.0 Hypertensive heart disease with heart failure; F13.90 Sedative, hypnotic, or anxiolytic use, unspecified, uncomplicated; Z68.37 Body mass index [BMI] 37.0-37.9, adult; Z79.899 Other long term (current) drug therapy; Z89.422 Acquired absence of other left toe(s); Z71.41 Alcohol abuse counseling and surveillance of alcoholic; Z71.51 Drug abuse counseling and surveillance of drug abuser; Z71.6 Tobacco abuse counseling
CPT/HCPCS: 31500; 36415; 36600; 51702; 70450; 71045; 74176; 80048; 80053; 80061; 80074; 80307; 80320; 81001; 82550; 82805; 82962; 83036; 83735; 83880; 84132; 84443; 84484; 85007; 85025; 85027; 86703; 87040; 87070; 87077; 87081; 87186; 87205; 87804; 93005; 93306; 94002; 94003; 94640; 96361; 96365; 96367; 96375; 97163; 99291; A4618; C9113; G0378; J0696; J1956; J2250; J2405; J2543; J2704; J7060